=== PATIENT | female | born 1965 | race American Indian/Alaskan Native ===

== ENCOUNTER 2016-12-14 13:11 | Outpatient (CLI) | payer OTHER ==
--- NOTE | 2016-12-14 15:50 | Mammography Report ---
Bilateral mammogram: Compared to 02/18/15. CAD study utilized. Findings: Predominance of adipose tissue bilaterally. New circumscribed 4 mm density subareolar area right breast. No microcalcification. Benign axilla. Impression: New circumscribed density subareolar area right breast. Recommend spot mag and if necessary sonographic examination. BI-RADS CATEGORY: 0 = Needs additional imaging evaluation ACR BI-RADS MAMMOGRAPHIC CODES: 0 = Needs additional imaging evaluation; 1 = Negative; 2 = Benign; 3 = Probably benign; 4 = Suspicious; 5 = Malignant; 6 = Known biopsy-proven malignancy COMMENT: 1. Dense breast tissue, i.e., adenosis, fibrocystic changes, etc., may obscure an underlying neoplasm. 2. Approximately 10% of cancers are not detected with mammography. 3. A negative mammography report should not delay biopsy if a clinically suspicious mass is present. COMMENT: Patient follow-up letters are generated in [employer]..
== END 2016-12-14 13:12 | disposition home or self-care (01) ==
LOC: MAMMO 13:11
PROVIDERS: ATTEND Physician Assistant Medical
DX: Z12.31 Encounter for screening mammogram for malignant neoplasm of breast (principal)
CPT/HCPCS: 77067; G0202

== ENCOUNTER 2016-12-29 12:46 | Outpatient (CLI) | payer OTHER ==
--- NOTE | 2016-12-29 13:27 | Mammography Report ---
Diagnostic right mammogram. History: Recall. Findings: A spot compression image in the CC projection demonstrates effacement of the previously noted small parenchymal asymmetry. This is not identified on the 90 degree lateral view as well. There is no architectural distortion or other significant findings. Impression: No suspicious findings. BI-RADS code: 1. Recommendation: Annual screening.
== END 2016-12-29 12:47 | disposition home or self-care (01) ==
LOC: MAMMO 12:46
PROVIDERS: ATTEND Internal Medicine
DX: R92.8 Other abnormal and inconclusive findings on diagnostic imaging of breast (principal)
CPT/HCPCS: G0206-RT